=== PATIENT | male | born 1990 | race Caucasian/White ===

== ENCOUNTER 2023-06-05 15:11 | Emergency (ER) | payer OTHER ==
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
[2023-06-05] MEDS ORDERED: iohexoL-300 100 ML VIAL ONE (16:07)
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
--- NOTE | 2023-06-05 16:40 | XRAY Report ---
PROCEDURE: Knee 4 View BILAT INDICATIONS: knee inj TECHNIQUE: 4 views of both knees were obtained. COMPARISON: None. FINDINGS: Bones: No fractures or dislocations. No suspicious bony lesions. Postoperative changes of ACL rep air of the left knee with tricompartmental degenerative changes and lateral joint space narrowing. Soft tissues: No knee joint effusion. No suspicious soft tissue calcifications or masses. IMPRESSION: 1. No acute traumatic abnormality of the knees. 2. Postoperative changes and degenerative changes of the left knee. Reviewed by: Yovany Amos on 06/05/2023 3:38 PM NU Approved by: Yovany Amos on 06/05/2023 3:38 PM NU Station ID: [id number]
[2023-06-05 17:08] VITALS: BP 145/94
[2023-06-05] MEDS ORDERED: iohexoL-300 100 ML VIAL IVP ONE (18:47)
== END 2023-06-05 17:16 | disposition home or self-care (01) ==
LOC: ED 15:11
DX: S09.90XA Unspecified injury of head, initial encounter (principal); S50.02XA Contusion of left elbow, initial encounter; S50.01XA Contusion of right elbow, initial encounter; S80.02XA Contusion of left knee, initial encounter; S80.01XA Contusion of right knee, initial encounter; Y35.811A Legal intervention involving manhandling, law enforcement official injured, initial encounter
CPT/HCPCS: 36415; 70450; 70498; 73080; 73564; 99283; 99284; A0425; A0429; Q9967